=== PATIENT | male | born 1995 | race Caucasian/White ===

== ENCOUNTER 2018-09-23 16:10 | Emergency (ER) | payer SELFPAY ==
[~2018-09-23] VITALS: Ht 177.8 cm; Wt 65.9 kg
[~2018-09-23 16:10] MED LIST: ALPR-624 PO
[2018-09-23 16:18] VITALS: BP 115/76
[2018-09-23] MEDS ORDERED: mupirocin 2% ointment 22GM TP STA (17:42)
== END 2018-09-23 18:06 | disposition home or self-care (01) ==
LOC: ER 16:10
DX: N49.2 Inflammatory disorders of scrotum (principal); F12.90 Cannabis use, unspecified, uncomplicated; Z79.899 Other long term (current) drug therapy
CPT/HCPCS: 99282

== ENCOUNTER 2019-01-10 13:46 | Emergency (ER) | payer MEDICAID ==
[~2019-01-10] VITALS: Ht 177.8 cm; Wt 68.2 kg
[2019-01-10] MEDS ORDERED: ALPR-624 PO (14:29)
[2019-01-10] MEDS ORDERED: ALPRAZolam 0.25mg tablet PO ONE (14:30)
[2019-01-10 14:57] VITALS: BP 118/65
== END 2019-01-10 15:03 | disposition home or self-care (01) ==
LOC: ER 13:46
DX: F41.9 Anxiety disorder, unspecified (principal); F12.90 Cannabis use, unspecified, uncomplicated; F17.200 Nicotine dependence, unspecified, uncomplicated
CPT/HCPCS: 99284

== ENCOUNTER 2019-02-28 20:13 | Emergency (ER) | payer MEDICAID, OTHER ==
[~2019-02-28] VITALS: Ht 180.3 cm; Wt 68.0 kg
[2019-02-28] MEDS ORDERED: LORazepam 1 MG tablet PO ONE (21:05)
[2019-02-28 22:04] VITALS: BP 112/74
[2019-02-28] MEDS ORDERED: hydrOXYzine 25 MG tablet PO ONE (22:15)
== END 2019-02-28 22:19 | disposition home or self-care (01) ==
LOC: ER 20:14
DX: F41.0 Panic disorder [episodic paroxysmal anxiety] (principal); F41.9 Anxiety disorder, unspecified; R06.82 Tachypnea, not elsewhere classified; F12.90 Cannabis use, unspecified, uncomplicated; Z79.899 Other long term (current) drug therapy
CPT/HCPCS: 93005; 99284; Z7610

== ENCOUNTER 2020-12-01 11:11 | Emergency (ER) | payer MEDICAID ==
[~2020-12-01] VITALS: Ht 177.8 cm; Wt 70.5 kg
[2020-12-01] MEDS ORDERED: cloNIDine 0.1 mg tablet PO ONE ×2 (14:40→16:00)
[2020-12-01] MEDS ORDERED: ondansetron 4mg rapidly disintigrating tab PO ONE ×2 (14:40→16:00)
[2020-12-01 14:49] LABS: ALANINE AMINOTRANSFERASE 24 U/L (12-78); ALBUMIN 4.6 G/DL (3.4-5.0); ALBUMIN/GLOBULIN RATIO 1.4 (1.1-1.5); ALKALINE PHOSPHATASE 74 IU/L (46-116); ANION GAP 15 (8-16); ASPARTATE AMINO TRANSFERASE 17 U/L (10-37); BILIRUBIN,TOTAL 0.6 MG/DL (0.1-1.0); BLOOD UREA NITROGEN 13 MG/DL (7-18); BUN/CREATININE RATIO 14.6 (5.4-32.0); CALCIUM 8.6 MG/DL (8.5-10.1); CHLORIDE 104 MMOL/L (99-107); CREATININE 0.89 MG/DL (0.60-1.10); GLUCOSE 91 MG/DL (70-104); SODIUM 140 MMOL/L (135-145); TOTAL CARBON DIOXIDE 21.1 MMOL/L (24-32); eGFR > 90 ML/MIN
--- NOTE | 2020-12-01 15:32 | NUR ---
Pt reports previous reaction to buprenorphine/naloxone. S/s included itchy throat and difficulty breathing. Pt denies allergy to medications. Pt expressed his concerns with taking suboxone. Provider notified.
[2020-12-01] MEDS: buprenorphine/naloxone 8MG-2MG SUBlingual film SL SCH ×2 (15:50→16:21)
[2020-12-01] MEDS ORDERED: buprenorphine/naloxone 8MG-2MG SUBlingual film SL SCH (16:00)
--- NOTE | 2020-12-01 16:27 | NUR ---
Patients aunt called, Jami. Jami reported to me that pt. was texting her today stating that he was going to kill himself upon discharge. Aunt also mentioned that pt has been texting cousins saying "goodbye." Provider has been notified and stated that pt. will be put on a hold and not discharged.
--- NOTE | 2020-12-01 16:30 | NUR ---
additional dose of clonidine, zofran and suboxone given at 1600. Provider confirmed.
[2020-12-01] MEDS ORDERED: diazepam inj 5 MG/ML inj. IM ONE (17:10)
[2020-12-01 17:35] LABS: BASOPHILS % (AUTO) 0.1 % (0-1); EOSINOPHILS % (AUTO) 0 % (0-6); HEMATOCRIT 42.9 % (42.0-52.0); HEMOGLOBIN 14.7 g/dl (14.0-17.9); LYMPHOCYTES # (AUTO) 0.8 X10'3 (1.1-4.8); LYMPHOCYTES % (AUTO) 7.7 % (21-51); MEAN CORPUSCULAR HEMOGLOBIN 30.7 PG (27.0-31.0); MEAN CORPUSCULAR HGB CONC 34.2 g/dL (33.0-36.5); MEAN CORPUSCULAR VOLUME 89.8 FL (78-98); MEAN PLATELET VOLUME 8.1 FL (7.4-10.4); MONOCYTES # (AUTO) 0.3 X10'3 (0-0.9); MONOCYTES % (AUTO) 3.2 % (2-12); NEUTROPHILS # (AUTO) 9.5 X10'3 (1.8-7.7); PLATELET COUNT 326 X10'3 (140-440); RED BLOOD COUNT 4.78 X10'6 (4.70-6.10); RED CELL DISTRIBUTION WIDTH 13.5 % (11.5-14.5); WHITE BLOOD COUNT 10.6 X10'3 (4.5-11.0)
[2020-12-01 17:51] LABS: ETHANOL < 0.010 GM/DL (0.0-0.010)
[2020-12-01] MEDS ORDERED: diphenhydrAMINE 50 mg/ml inj IV ONE (18:20)
[2020-12-01] MEDS ORDERED: metoclopramide 5 mg/ml inj IV ONE (18:20)
[2020-12-01 18:40] LABS: URINE AMPHETAMINE SCREEN NEGATIVE (Neg); URINE BARBITUATE SCREEN NEGATIVE (Neg); URINE BENZODIAZEPINES SCREEN NEGATIVE (Neg); URINE CANNABINOID SCREEN NEGATIVE (Neg); URINE COCAINE SCREEN NEGATIVE (Neg); URINE METHADONE SCREEN POSITIVE (Neg); URINE OPIATE SCREEN NEGATIVE (Neg); URINE PHENCYCLIDINE SCREEN NEGATIVE (Neg)
[2020-12-01 18:44] LABS: ACETAMINOPHEN < 2.0 UG/ML (10-30)
[2020-12-01] MEDS ORDERED: nicotine 7mg patch - 24hr TD ONE (19:30)
--- NOTE | 2020-12-01 19:30 | NUR ---
INTERVIEWED PT ABOUT SUICIDAL THOUGHTS, ATTEMPTS, STATEMENTS, OR PLAN AND PT DENIED ALL QUESTIONS.
[2020-12-01] MEDS ORDERED: NO HOME MEDS (20:49)
[2020-12-01] MEDS ORDERED: quetiapine 100mg tablet PO ONE (23:20)
[2020-12-01] MEDS ORDERED: quetiapine 100mg tablet PO SCH (23:20)
[2020-12-01] MEDS ORDERED: diphenhydrAMINE 25mg capsule PO ONE (23:55)
--- NOTE | 2020-12-02 | NUR ---
pt appears agitated and is pacing next to karen portillo. pt states he is in pain all over and wants his methadone. educated pt that he recieved suboxone medication earlier today and that it is a once a day treatment.
[2020-12-02] MEDS ORDERED: OLANZapine 2.5MG tablet PO STA (00:21)
--- NOTE | 2020-12-02 01:29 | NUR ---
patient wrapped up in his sheets from head to toe, asleep.
--- NOTE | 2020-12-02 05:23 | NUR ---
Ray truong in ED - 12/02/20 at 0549 by [facility] patient given meds as ordered, had long conversation with MD that there is nothing wrong, but patient is going in circles and is argumentative.
[2020-12-02] MEDS ORDERED: OLANZapine 2.5MG tablet PO SCH (08:00)
--- NOTE | 2020-12-02 09:53 | NUR ---
PATIENT MOVED TO [facility] AND IS RESTING ON [facility], AWAITING MENTAL HEALTH EVALUATION.
[2020-12-02] MEDS ORDERED: nicotine 14mg patch - 24hr TD ONE ×2 (10:05→16:05)
--- NOTE | 2020-12-02 11:41 | NUR ---
FRANCESCA (MOM) CALLED TO GET UPDATE. PATIENT UPDATED MOM ON PHONE.
--- NOTE | 2020-12-02 15:33 | NUR ---
Received from [facility]. Pt calm and cooperative currently.
--- NOTE | 2020-12-02 15:43 | NUR ---
packet faxed to [facility]
[2020-12-02] MEDS ORDERED: LORazepam 1 MG tablet PO ONE (16:00)
[2020-12-02] MEDS ORDERED: OLANZAPINE 5 MG TABLET PO SCH (16:03)
--- NOTE | 2020-12-02 16:11 | NUR ---
patient is increasingly restless, pacing around room, asking for his phone back multiple times. Policy and procedure explained. Dr. Fitzgerald updated, medication orders placed.
--- NOTE | 2020-12-02 17:18 | NUR ---
Pt sitting at bedside being evaluated by [facility]. Pt cooperative. Pt had been interacting with RN earlier and became tearful and called himself a "shitty human".
[2020-12-02] MEDS ORDERED: CLON0.1T2 PO (18:42)
[2020-12-02 19:00] VITALS: BP 112/85
== END 2020-12-02 19:04 | disposition home or self-care (01) ==
LOC: ER 11:12
DX: R45.851 Suicidal ideations (principal); F11.23 Opioid dependence with withdrawal; R11.2 Nausea with vomiting, unspecified; R19.7 Diarrhea, unspecified; F41.9 Anxiety disorder, unspecified; F12.90 Cannabis use, unspecified, uncomplicated
CPT/HCPCS: 36415; 80053; 80305; 80320; 80329; 84439; 84443; 85025; 96372; 96374; 96375; 99285; J1200; J2765; J3360; Q0163